=== PATIENT | male | born 1970 | race Caucasian/White ===

== ENCOUNTER → 2017-07-30 13:07 | Outpatient (CLI) | payer OTHER, SELFPAY ==
[2016-03-01 02:51] VITALS: BMI 44.4
[2016-03-01 10:53] VITALS: BP 131/88
[2016-03-01 12:11] VITALS: BP 138/88
--- NOTE | 2017-07-30 13:16 | RAD_ITS ---
STUDY: X-RAY - LEFT SHOULDER REASON FOR EXAM: Male, 46 years old. Pain TECHNIQUE: 4 view(s) of the shoulder. COMPARISON: None. FINDINGS: Normal glenohumeral articulation. Mild hypertrophy at the acromioclavicular joint. Normal acromion. Normal humeral head and visualized proximal humerus. The soft tissue structures are unremarkable. Normal visualized pulmonary apex. RAD/Shoulder min 2 Views IMPRESSION: No acute bony injury of the shoulder. Electronically Signed: Domo Burns DO at 22:15 EST Tel [phone], Service support ,
== END ==
PROVIDERS: Family Provider Family Medicine; PCP Family Medicine; Visit Provider Family Medicine
DX: M25.512 Pain in left shoulder (principal)
CPT/HCPCS: 73030

== ENCOUNTER 2018-01-24 20:30 | Emergency (ER) | payer OTHER, SELFPAY ==
[2018-01-24 20:30] VITALS: BP 167/105; PULSE 75; RESP 18; TEMP 37.1; O2SAT 96; BMI 45.7
[2018-01-24] MEDS: 0.9% Normal Saline 1,000 ML 1000 ML IV (21:05)
[2018-01-24 21:10] LABS: Bacteria 0 SEEN /hpf (None Seen); Mucous, Urine 0 SEEN /hpf (<or=2+); Red Blood Cells-Urine 0 SEEN /hpf (0-5); Squamous Epithelial Cells - UA 0 SEEN /hpf (0-5); White Blood Cells 0 SEEN /hpf (0-5)
[2018-01-24 21:15] LABS: Color, Urine Yellow (Yellow); Glucose, Dipstick 1000 mg/dl (Normal); Ketone-Dipstick 5 mg/dl (Negative); Leukocyte Esterase-Dipstick Negative /ul (Negative); Nitrite-Dipstick Negative (Negative); Occult Blood-Urine Negative /ul (Negative); Protein-Dipstick 15 mg/dl (Negative); Specific Gravity, Urine 1.025 (1.002-1.030); Urine Bilirubin Dipstick Negative (Negative); Urine Clarity Clear (Clear); Urine Urobilinogen Normal (Normal)
[2018-01-24 21:16] LABS: Bedside Glucose 226 mg/dL (70-110)
[2018-01-24 21:26] LABS: Absolute Lymphocyte Count 1.72 X10^3/ul (0.83-4.51); Anion Gap 6 (5-15); BUN 11 mg/dL (7-18); BUN/Creat Ratio 13.1 RATIO (10-20); Basophil# 0.05 X10^3/uL; Basophil% 0.8 % (0-1); Calcium,Total 9.1 mg/dL (8.5-10.1); Chloride 105 mmol/L (98-107); Creatinine, Serum 0.84 mg/dL (0.70-1.30); EST Glomerular Filtration Rate 103 mL/min (>60); Eosinophil# 0.32 X10^3/uL; Eosinophils% 4.8 % (0-5); Est Glom Filt Rate - Afr Amer 125 mL/min (>60); Estimated Creatinine Clearance 127.14 ml/min; Glucose 265 mg/dL (74-106); Hematocrit 43.2 % (40-54); Hemoglobin 14.2 g/dl (13.0-16.5); Lymphocyte # 1.72 X10^3/ul (4.0); Lymphocyte % 25.9 % (19-41); Mean Corp Hgb Conc 32.9 g/gl (32-36); Mean Corpuscular Hgb 27.4 pg (27.0-32.0); Mean Corpuscular Volume 83.4 fL (80-94); Mean Platelet Vol. 10.6 fl (6.2-12.0); Monocyte# 0.51 X10^3/uL; Monocyte% 7.7 % (0-10); Neutrophil # 4.03 X10^3/uL (2.7-7.7); Neutrophil % 60.6 % (47-70); POSITIVE COUNT NO; POSITIVE DIFFERENTIAL NO; POSITIVE MORPHOLOGY NO; Platelet Count 227 K/mm3 (150-450); Potassium 3.9 mmol/L (3.5-5.1); RBC Distribution Width CV 13.2 % (11.6-14.6); RBC Distribution Width SD 39.9 fl (35.1-43.9); Red Blood Count 5.18 M/mm3 (4.6-6.2); Sodium Level 138 mmol/L (136-145); White Blood Count 6.6 K/mm3 (4.4-11.0)
--- NOTE | 2018-01-24 21:33 | ED.VISSUMM ---
- ER Visit Summary Date of Service: 01/24/18 Chief Complaint: [High blood sugar] History of Present Illness: The patient is a 47 M [presents the emergency department complaint of elevated blood sugar that he noticed this morning when he woke up. Patient states that his meter just read high which means it was over 500. Patient is currently only taking 1 of his medications which is the Metformin which he takes 1000 mg twice a day. Patient also was supposed to be on true list that he 0.75 mg once a week as well as Invokana 100 mg daily and pioglitazone 15 mg daily. Patient states that he cannot afford the co-pays on these 3 other medications and therefore he has been without them for over 2 weeks. Patient finally called his primary care physician he has an appointment scheduled for tomorrow. Prior to coming to the emergency department patient's blood sugar was 278. Patient denies vomiting. Patient denies recent illness. At times patient has had some lightheadedness.] Physical Examination: [HEENT-PERRLA, EOMI. Cranial nerves II through XII grossly intact. TMs clear. Mucous membranes moist. No adenopathy. Cardiovascular-regular rate and rhythm without murmur or ectopy Lungs-clear to auscultation, chest wall stable without crepitus or subcu emphysema Abdomen-normoactive bowel sounds, soft, nontender, no rebound or rigidity, no peritoneal signs. Extremities-intact ?4, normal range of motion, normal pulses, atraumatic] Test Results: CBC with differential obtained was normal. Chemistries unremarkable. Blood glucose was 265. BUN was 11 and creatinine 0.84. Urinalysis showed that he was spilling glucose without evidence of infection. [] Emergency Department Course and Treatment: [Patient received a liter normal same fluid bolus.] Treatment Plan: [Patient to keep his appointment with his primary care physician tomorrow.] Disposition: [Discharged home in stable condition] Impression: [Hyperglycemia Noncompliant with medications secondary to financial's] This note was generated with [employer] dictation software. It may contain incorrect words, spelling, and punctuation that were not noted in review of the chart prior to signing ED Disposition - Plan for ED Patient: Chief Complaint: Hyperglycemia Referrals: Sesar Gore DO [Primary Care Provider] -
--- NOTE | 2018-01-24 21:36 | ED.DCSUM_ITS ---
- ER Visit Summary Date of Service: 01/24/18 Chief Complaint: [High blood sugar] History of Present Illness: The patient is a 47 M [presents the emergency department complaint of elevated blood sugar that he noticed this morning when he woke up. Patient states that his meter just read high which means it was over 500. Patient is currently only taking 1 of his medications which is the Metformin which he takes 1000 mg twice a day. Patient also was supposed to be on true list that he 0.75 mg once a week as well as Invokana 100 mg daily and pioglitazone 15 mg daily. Patient states that he cannot afford the co-pays on these 3 other medications and therefore he has been without them for over 2 weeks. Patient finally called his primary care physician he has an appointment scheduled for tomorrow. Prior to coming to the emergency department patient's blood sugar was 278. Patient denies vomiting. Patient denies recent illness. At times patient has had some lightheadedness.] Physical Examination: [HEENT-PERRLA, EOMI. Cranial nerves II through XII grossly intact. TMs clear. Mucous membranes moist. No adenopathy. Cardiovascular-regular rate and rhythm without murmur or ectopy Lungs-clear to auscultation, chest wall stable without crepitus or subcu emphysema Abdomen-normoactive bowel sounds, soft, nontender, no rebound or rigidity, no peritoneal signs. Extremities-intact ?4, normal range of motion, normal pulses, atraumatic] Test Results: CBC with differential obtained was normal. Chemistries unremarkable. Blood glucose was 265. BUN was 11 and creatinine 0.84. Urinalysis showed that he was spilling glucose without evidence of infection. [ ] Emergency Department Course and Treatment: [Patient received a liter normal same fluid bolus.] Treatment Plan: [Patient to keep his appointment with his primary care physician tomorrow.] Disposition: [Discharged home in stable condition] Impression: [Hyperglycemia Noncompliant with medications secondary to financial's] This note was generated with [employer] dictation software. It may contain incorrect words, spelling, and punctuation that were not noted in review of the chart prior to signing ED Disposition - Plan for ED Patient: Chief Complaint: Hyperglycemia Referrals: Sesar Gore DO [Primary Care Provider] -
--- NOTE | 2018-01-24 21:36 | ED.DEP ---
ED Disposition - Plan for ED Patient: Chief Complaint: Hyperglycemia Instructions: ED Hyperglycemia Diabetic Referrals: Sesar Gore DO [Primary Care Provider] - 1 Day
[2018-01-24 21:59] VITALS: PULSE 87; RESP 18; O2SAT 96
[2018-01-24 22:10] LABS: Bedside Glucose 231 mg/dL (70-110)
== END 2018-01-24 22:00 | disposition home or self-care (01) ==
PROVIDERS: Emergency Provider Emergency Medicine; Family Provider Family Medicine; PCP Family Medicine
DX: E11.65 Type 2 diabetes mellitus with hyperglycemia (principal); I10 Essential (primary) hypertension; E78.00 Pure hypercholesterolemia, unspecified; Z91.14 Patient's other noncompliance with medication regimen; Z79.84 Long term (current) use of oral hypoglycemic drugs; Z79.82 Long term (current) use of aspirin; Z72.0 Tobacco use
CPT/HCPCS: 80048; 81001; 82962; 85025; 99283; J7030; A4216

== ENCOUNTER 2018-04-24 18:06 | Emergency (ER) | payer OTHER, SELFPAY ==
[2018-04-24 18:07] VITALS: BP 155/83; PULSE 77; RESP 18; TEMP 36.7; O2SAT 97; BMI 43.3
[2018-04-24 18:16] VITALS: BP 145/70; PULSE 75; RESP 14; O2SAT 98
[2018-04-24] MEDS: Ketorolac 30 MG/ML Syringe IM (19:06)
[2018-04-24] MEDS: Orphenadrine 60 MG/2 ML Ampul IM (19:06)
[2018-04-24] MEDS: morphine 10 MG/ML Syringe 4 MG SC (19:06)
--- NOTE | 2018-04-24 20:05 | ED.DCSUM_ITS ---
- ER Visit Summary Date of Service: 04/24/18 Chief Complaint: Lower back pain History of Present Illness: The patient is a 47 M with lower back pain that has been increasing for several days. Denies any injury. He has had back pain in the past. He is taking anti-inflammatories with minimal relief. Denies any abdominal or GI symptoms. Denies any urinary symptoms. Denies fevers. Denies any history of lumbar surgery. Physical Examination: Afebrile and vital signs unremarkable. Alert and oriented. No acute distress. Heart regular. Lungs clear. Left lumbar back is tender to palpation. No spinal tenderness. Straight leg raise is negative. Normal strength and sensation distally. Good pulses. Test Results: None indicated Emergency Department Course and Treatment: Patient received subtenons morphine, Toradol, Norflex. On reevaluation, he was able to ambulate. Patient will be discharged. He will continue anti-inflammatories at home. Flexeril as needed. He was given a short course of Percocet for help with sleeping. Follow-up with primary care Thursday. Treatment Plan: As above Disposition: Discharge Impression: 1. Lumbar back pain This note was generated with [employer] dictation software. It may contain incorrect words, spelling, and punctuation that were not noted in review of the chart prior to signing ED Disposition - Plan for ED Patient: Chief Complaint: Back Referrals: Sesar Gore DO [Primary Care Provider] -
--- NOTE | 2018-04-24 20:05 | ED.DEP ---
ED Disposition - Plan for ED Patient: Chief Complaint: Back Instructions: ED Spasm Back No Trauma Prescriptions: Oxycodone HCl/Acetaminophen [Percocet 5/325] 1 tab PO Q6H PRN PRN 3 Days #12 tab PRN Reason: Pain Cyclobenzaprine [Flexeril] 10 mg PO TID PRN #20 tab PRN Reason: Muscle Spasm Referrals: Sesar Gore DO [Primary Care Provider] -
[2018-04-24 20:18] VITALS: BP 142/70; PULSE 70; RESP 14; O2SAT 98
== END 2018-04-24 20:20 | disposition home or self-care (01) ==
PROVIDERS: Emergency Provider Emergency Medicine; Family Provider Family Medicine; PCP Family Medicine
DX: M54.5 Low back pain (principal); Z87.442 Personal history of urinary calculi
CPT/HCPCS: 96372; 99283

== ENCOUNTER 2019-02-15 20:38 | Observation (INO) | payer BC, SELFPAY ==
[2019-02-15 20:38] VITALS: BP 153/84; PULSE 88; PULSE 92; RESP 16; RESP 17; TEMP 37.1; O2SAT 98; BMI 46.0
--- NOTE | 2019-02-15 20:40 | ED.RN ---
CALLED FOR EKF PER RN REQUEST, PULLED OLD EKGS FOR
--- NOTE | 2019-02-15 20:45 | RAD_ITS ---
STUDY: X-RAY CHEST REASON FOR EXAM: Male, 48 years old. Chest pain TECHNIQUE: Single frontal view of the chest. COMPARISON: None. FINDINGS: The lungs are clear and expanded. There is no demonstrated pleural abnormality. Normal size heart. Normal mediastinum and juanjo. Normal visualized pulmonary arteries. Normal visualized aortic arch and descending thoracic aorta. Normal visualized thoracic spine. Normal visualized ribs, clavicles, and shoulders. There is no demonstrated abnormality of the visualized soft tissue structures of the upper abdomen. RAD/Chest 1 View (Portable) IMPRESSION: Normal x-ray examination of the chest. Electronically Signed: Chay Sutton MD at 21:36 EDT , Service support ,
--- NOTE | 2019-02-15 20:47 | EKG12_ITS ---
Test Reason : CP Blood Pressure : / mmHG Vent. Rate : 092 BPM Atrial Rate : 092 BPM P-R Int : 154 ms QRS Dur : 090 ms QT Int : 344 ms P-R-T Axes : 036 -27 023 degrees QTc Int : 425 ms Normal sinus rhythm Normal ECG Confirmed by HILLARY BOWMAN ([id number]), news assignment editor ROBERTA HOLLINS ([id number]) on 02/22/2019 10:03:56 AM Referred By: Nereida Sky Confirmed By:HILLARY BOWMAN
[2019-02-15 20:51] VITALS: O2SAT 99
[2019-02-15 20:54] LABS: Absolute Lymphocyte Count 1.49 X10^3/uL (0.83-4.51); Absolute Neutrophil Count 6.3 X10^3/uL (2.0-7.7); Basophil# 0.06 X10^3/uL; Basophil% 0.7 % (0-1); Eosinophil# 0.26 X10^3/uL; Eosinophils% 2.9 % (0-5); Hematocrit 43.3 % (40-54); Hemoglobin 14.1 g/dL (13.0-16.5); Lymphocyte # 1.49 X10^3/ul (4.0); Lymphocyte % 16.8 % (19-41); Mean Corp Hgb Conc 32.6 g/dL (32-36); Mean Corpuscular Hgb 27.6 pg (27.0-32.0); Mean Corpuscular Volume 84.7 fL (80-94); Mean Platelet Vol. 10.4 fl (6.2-12.0); Monocyte# 0.76 X10^3/uL; Monocyte% 8.6 % (0-10); NRBC Flagged by Analyzer 0 % (0-5); Neutrophil # 6.27 X10^3/uL (2.7-7.7); Neutrophil % 70.7 % (47-70); Platelet Count 236 K/mm3 (150-450); RBC Distribution Width CV 13.2 % (11.6-14.6); RBC Distribution Width SD 41.1 fl (35.1-43.9); Red Blood Count 5.11 M/mm3 (4.6-6.2); White Blood Count 8.9 K/mm3 (4.4-11.0)
[2019-02-15] MEDS: Aspirin 81 MG TAB.CHEW 324 MG PO (20:57)
[2019-02-15] MEDS: 0.9% Normal Saline 1,000 ML 150 ML IV (21:00)
[2019-02-15 21:12] LABS: Anion Gap 6 (5-15); BUN 14 mg/dL (7-18); Calcium,Total 9.4 mg/dL (8.5-10.1); Chloride 104 mmol/L (98-107); Creatinine, Serum 1.17 mg/dL (0.70-1.30); EST Glomerular Filtration Rate 70 mL/min (>60); Est Glom Filt Rate - Afr Amer 85 mL/min (>60); Estimated Creatinine Clearance 90.28 ml/min; Glucose 344 mg/dL (74-106); Potassium 4.3 mmol/L (3.5-5.1); Sodium Level 136 mmol/L (136-145)
--- NOTE | 2019-02-15 21:17 | ED.VIS.GEN ---
History of Present Illness Chief Complaint: Chest Pain Informant: Patient Onset: Days Context: Gradual Onset Timing: Intermittent Current Severity: Moderate Maximum Severity: Moderate Narrative: Patient presents to the emergency department chest pain, fatigue, and syncopal episode. Patient states he has been in his normal state of health. He states that he has been having elevated blood sugars. He thought that it was secondary to the fact that he has been working 2 jobs and not eating appropriately. He states over the past 3 days, he has been having intermittent chest pain in the left substernal area that radiates into his left shoulder. He states it will come in waves. He does not think it is related to exertion. He states the other night, he got up to urinate, was just feeling very fatigued and lightheaded. He states that he had passed out twice. He states he had chest pain before he was admitted to the hospital and had a stress test which showed no acute process. He denies any history of coronary vascular disease. He denies orthopnea or leg edema. Prior similar symptoms: Yes Recent Illness/Hospitalization: No Past Medical History - Allergies and Home Meds Allergies/Adverse Reactions: Allergies sitagliptin [From Januvia] Allergy (Verified 02/15/19 20:51) Angioedema Prior records reviewed: Yes Past Medical History: - - Hypertension, hyperlipidemia, obesity, diabetes Surgical History: - - nephrolithiasis break up by u/s Lives: With Family Smoking Status: Former smoker Alcohol: None Drugs: None - Family History Paternal Family History: Reports: Heart Disease Maternal Family History: Reports: - - chf Review of Systems General: Reports: Malaise Eyes: Denies: Visual changes - bilaterally, Diplopia ENT: Denies: Rhinorrhea, Sore throat Cardiovascular: Reports: Chest pain Respiratory: Denies: Dyspnea, Cough, Dyspnea on exertion Gastrointestinal: Reports: Nausea Genitourinary: Reports: Frequency Musculoskeletal: Denies: Back pain, Extremity Pain Skin: Denies: Rash, Wounds Neurological: Denies: Headache, Weakness, Numbness Physical Exam Vital Signs/Narrative: Vital Signs Temp Pulse Resp BP Pulse Ox 02/15/19 20:51 99 02/15/19 20:38 98.7 F 88 17 153/84 H 98 Inital Vital Signs reviewed: Yes General: Well nourished, Well developed, No Acute Distress Head: Normocephalic, Atraumatic Eyes: Perrl, EOMI ENT: Moist mucous membranes, No rhinorrhea Neck: Supple, Nontender Cardiovascular: Regular rate, Regular rhythm, No murmurs Respiratory: No distress, CTA bilaterally, Chest nontender Abdomen: Soft, Nontender, Nondistended, Normal bowel sounds Back: Nontender, Normal Inspection Extremities: Nontender, No edema Skin: Normal color, No rash Neurological: Alert, Oriented x3, Cranial nerves II-XII grossly intact, Normal Strength, Normal Sensation Psychological: Normal affect, Normal Mood Diagnostic/Tx/Re-eval Chest X-Ray - ED: 1 View, Normal, Heart, Lungs Clinical Impression(s) from Imaging Studies Chest X-Ray 02/15/19 20:45 IMPRESSION: Normal x-ray examination of the chest. Electronically Signed: Chay Sutton MD at 21:36 EDT , Service support , Abnormal Lab Results 02/15/19 02/15/19 20:49 20:49 WBC 8.9 RBC 5.11 Hgb 14.1 Hct 43.3 MCV 84.7 MCH 27.6 MCHC 32.6 RDW Std Deviation 41.1 RDW Coeff of Pipo 13.2 Plt Count 236 MPV 10.4 Immature Gran % (Auto) 0.300 Neut % (Auto) 70.7 H Lymph % (Auto) 16.8 L [place] % (Auto) 8.6 Eos % (Auto) 2.9 Baso % (Auto) 0.7 Absolute Neuts (auto) 6.3 Absolute Lymphs (auto) 1.49 Nucleated RBC % 0 Sodium 136 Potassium 4.3 Chloride 104 Carbon Dioxide 26.0 Anion Gap 6 BUN 14 Creatinine 1.17 Estim Creat Clear Calc 90.28 Est GFR (MDRD) Af Amer 85 Est GFR (MDRD) Non-Af 70 BUN/Creatinine Ratio 12.0 Glucose 344 H Calcium 9.4 Troponin I < 0.015 - Rhythm Strip Rhythm Strip: Sinus Rhythm Rate: 90 Ectopy: None - EKG Initial EKG Interpretation: Sinus Rhythm, No Acute Injury Pattern Prior: Unchanged - Medical Decision Making My suspicion is that the patient's chest pain is multifactorial. He does have significant risk for coronary vascular disease. His EKG did not show any acute ischemic change and was unchanged from prior. As far as a syncopal events, the patient does have sleep apnea and has not been using his CPAP, he is also been working 2 jobs and is not managing his blood sugar. Again, my suspicion for acute coronary syndrome is low but the patient does have multiple risk factors. Metabolic work-up was pursued and was unremarkable. At this point, the patient needed to observation for cardiac rule out. He is comfortable with this plan of care. Impression 1. Chest pain 2. Syncope ED Disposition - Plan for ED Patient:
--- NOTE | 2019-02-15 21:51 | PCM.HP.STD ---
Problem List (1) Chest pain Status: Acute Qualifiers: Chest pain type: unspecified Qualified Code(s): R07.9 - Chest pain, unspecified (2) CHARISSA (obstructive sleep apnea) Status: Chronic (3) Diabetes Status: Chronic Qualifiers: Diabetes mellitus type: type 2 Diabetes mellitus residential insulin use: with emt intermediate use Diabetes mellitus complication status: with other specified complication Qualified Code(s): E11.69 - Type 2 diabetes mellitus with other specified complication; Z79.4 - USP (current) use of insulin (4) HLD (hyperlipidemia) Status: Chronic Qualifiers: Hyperlipidemia type: unspecified Qualified Code(s): E78.5 - Hyperlipidemia, unspecified (5) HTN (hypertension) Status: Chronic Qualifiers: Hypertension type: essential hypertension Qualified Code(s): I10 - Essential (primary) hypertension History of Present Illness Date of Admission: 02/15/19 Chief Complaint: Chest pain The patient is a 48 y/o M w/ PMHx: Morbid Obesity, Diabetes mellitus type II, HTN, HLD, Former Tobacco use, GERD, CHARISSA currently without CPAP who presents to the [facility] ED on 02/15/19 with history of 3 3 days of near constant although he does state there have been very minimal pauses of chest discomfort described as achiness, 3-5 out of 10 which is across the chest as well as across his back and shoulders with no specific alleviating or worsening factors, not exertional, no associated nausea, emesis, dyspnea however does state that he has been more fatigued, working 2 jobs, poor oral intake choices and per report even fell asleep sitting up the evening prior and awoke as he had fallen towards the floor with noted market elevated stress and from his report tension headaches. Patient was previously admitted in February 2016 with chest discomfort at that time with unremarkable work-up presumed secondary to GERD with a negative nuclear stress test at that time as well as negative cardiac enzymes series. Work-up in the ED included T 98.7, heart rate 92, BP 153/84, respiratory rate 16, 98% on room air, CBC with WBC 8.9, hemoglobin 14.1, platelet 236 without evidence market shift, BMP with glucose 344 otherwise not market appearing, troponin less than 0.015, EKG with sinus rhythm with no acute evidence of ischemia, chest x-ray with no acute cardiopulmonary findings. In the ED patient ministered normal saline, aspirin therapy, insulin 8 units subcu x1. Past Medical History Past Medical History (Chronic Problems): Chronic Problems CHARISSA (obstructive sleep apnea) (Chronic) HLD (hyperlipidemia) (Chronic) HTN (hypertension) (Chronic) Diabetes (Chronic) Allergies sitagliptin [From Anabela] Allergy (Verified 02/15/19 20:51) Angioedema Home Medications: Ambulatory Orders Medication Instructions Recorded Aspirin [Aspirin, Baby] 81 mg PO DAILY@0800 02/29/16 Simvastatin [Zocor] 40 mg PO QHS 02/29/16 metFORMIN HCl [Glucophage] 1,000 mg PO BIDCM 02/29/16 Citalopram [Celexa] 20 mg PO DAILY 02/15/19 Gabapentin [Neurontin] 300 mg PO BID 02/15/19 Glyburide,Micronized [Glyburide 6 mg PO DAILY 02/15/19 Micronized] Lisinopril [Zestril] 10 mg PO 02/15/19 cycloBENZAPRine HCl [Flexeril] 10 mg PO TID PRN 02/15/19 Surgical History: - - Lithotripsy. Psychiatric History: Anxiety, Depression Lives: With Family - Patient lives with his and son. Smoking Status: Former smoker - Patient states he was never a cigarette tobacco user but did in the past remotely smokes cigars occasionally. Tobacco Use: Non-smoker Alcohol: None Drugs: None - *Family History Paternal History Items: Diabetes, Heart Disease Maternal History Items: Diabetes, Heart Disease Review of Systems Constitutional: Reports: Malaise, Fatigue. Denies: Anorexia, Chills, Fever, Weakness, Weight Change HEENT: Reports: Head Aches. Denies: Sinus Congestion, Sinus Drainage Cardiovascular: Reports: Chest Pain. Denies: Chest Pressure, Chest Tightness, Heaviness, Light Headedness, Orthopnea, Palpitations, Syncope Respiratory: Denies: Cough, Shortness of Breath, Shortness of breath at rest, Shortness of breath upon exertion, Sputum production Gastrointestinal: Denies: Abdominal Pain, Nausea, Vomiting Genitourinary: Reports: - - Overactive bladder, urinary frequency.. Denies: Dysuria Musculoskeletal: Reports: Back Pain, Neck Pain, Shoulder Pain. Denies: Joint Pain, Joint Tenderness Skin: Denies: Rash, Wounds Neurological: Denies: Numbness, Tingling, Focal weakness Psychiatric: Reports: Anxiety, Depression. Denies: Homicidal Ideations, Suicidal Ideations Hematologic/ Lymphatic: Denies: Easy Bruising, Easy Bleeding VTE Information - Inpt Only VTE Present on Admission: No VTE Mechan Device Prophylaxis: SCD's VTE Pharm Prophylaxis ordered?: Yes Subjective: Seated upright in ED bed, fatigued appearance, no acute distress, no current chest discomfort. Objective: Physical Examination: General: awake, alert, oriented x 3 and cooperative, seated upright in ED bed, no acute distress, no current chest discomfort. Skin: normal color, turgor, no icterus, cyanosis. HEENT: AT/NC, EOMI, PERRLA, mildly dry MM, no carotid bruits or JVD noted; however, thickened neck makes examination difficult. Lungs: CTA bilaterally, moderate effort, moderate decrease BL bases, no rales, ronchi or wheezing. Heart: Regular rate and rhythm; no gallop, rub audible. Abdomen: soft, morbidly obese, NTTP, ND, normal BS, no HSM; however, morbidly obese habitus makes examination difficult. Extremities: no cyanosis, clubbing, or edema. Neurological: patient awake, alert, oriented x 3; cognitive function intact; pupils equally reactive to light and accomodation; cranial nerves II-XII grossly normal, moving all 4 extremities, no focal deficits, strength moderately global decrease secondary to acute presentation. Psychiatric: affect appears fatigued, does admit that he has high stress in his life, no acute evidence of depressive or anxiety feelings. - Physical Exam Vital Signs Temp Pulse Resp BP Pulse Ox 98.7 F 88 17 153/84 H 99 02/15/19 20:38 02/15/19 20:38 02/15/19 20:38 02/15/19 20:38 02/15/19 20:51 Oxygen Delivery Method Room Air Weight: 368 lb 2.751 oz Body Mass Index (BMI) 46.0 Finger Stick Blood Glucose 231 Laboratory Tests Past 24 Hrs 02/15/19 02/15/19 20:49 20:49 WBC 8.9 RBC 5.11 Hgb 14.1 Hct 43.3 MCV 84.7 MCH 27.6 MCHC 32.6 RDW Std Deviation 41.1 RDW Coeff of Pipo 13.2 Plt Count 236 MPV 10.4 Immature Gran % (Auto) 0.300 Neut % (Auto) 70.7 H Lymph % (Auto) 16.8 L [place] % (Auto) 8.6 Eos % (Auto) 2.9 Baso % (Auto) 0.7 Absolute Neuts (auto) 6.3 Absolute Lymphs (auto) 1.49 Nucleated RBC % 0 Sodium 136 Potassium 4.3 Chloride 104 Carbon Dioxide 26.0 Anion Gap 6 BUN 14 Creatinine 1.17 Estim Creat Clear Calc 90.28 Est GFR (MDRD) Af Amer 85 Est GFR (MDRD) Non-Af 70 BUN/Creatinine Ratio 12.0 Glucose 344 H Calcium 9.4 Troponin I < 0.015 Assessment/Plan All Active Problems Chest pain (Acute) SOB (shortness of breath) (Acute) The patient is a 48 y/o M w/ PMHx: Morbid Obesity, Diabetes mellitus type II, HTN, HLD, Former Tobacco use, GERD, CHARISSA currently without CPAP who presents to the [facility] ED on 02/15/19 with history of 3 3 days of near constant although he does state there have been very minimal pauses of chest discomfort described as achiness, 3-5 out of 10 which is across the chest as well as across his back and shoulders with no specific alleviating or worsening factors, not exertional, no associated nausea, emesis, dyspnea. 1. Chest Pain, atypical, less suspicious for cardiac etiology: Work-up in the ED included T 98.7, heart rate 92, BP 153/84, respiratory rate 16, 98% on room air, CBC with WBC 8.9, hemoglobin 14.1, platelet 236 without evidence market shift, BMP with glucose 344 otherwise not market appearing, troponin less than 0.015, EKG with sinus rhythm with no acute evidence of ischemia, chest x-ray with no acute cardiopulmonary findings. Suspect likely etiology musculoskeletal in etiology especially with likely tension headaches, poor CPAP compliance contributing as well as poor diet and self-care. Will admit to the PCU, place on a monitored bed to assure no acute myocardial infarction with serial cardiac enzymes and EKGs. Patient is unable to perform exercise thus will proceed with AM nuclear stress testing. ASA, NG, morphine. FLP pending. Mag pending. 2. ? Syncopal event: Syncopal event during recent history of chest discomfort, not using CPAP, poor oral food intake, poor compliance with regimen, suspect likely anoxia as does not recall events but was found by in his closet. As noted will place on a monitored bed to assure no acute myocardial infarction with serial cardiac enzymes and EKGs, continue closely monitor, institute CPAP I suspect most likely etiology. 3. Hypertension: Continue home regimen including lisinopril, PRN hydralazine. 4. Hyperlipidemia: Continue home statin regimen. AM FLP. 5. Diabetes mellitus type II: Hold oral home regimen, clarifying long-acting as well as short-acting regimen, obtain hemoglobin HgbA1c, ADA diet until n.p.o. status, accu checks w/ ISS, nutrition consultation for education and teaching. 6. Morbid Obesity: Weight loss and lifestyle changes encouraged, nutrition consulted. 7. Former tobacco use: Encouraged continued tobacco cessation. 8. CHARISSA: Will initiate CPAP. CM consultation to assist with set-up of his CPAP again as he notes this had been discontinued following lapse of his prior insurance but has not resumed. 9. GERD: We will place on PPI. 10. Anxiety and depression: Continue home Celexa regimen. 11. DVT prophylaxis SCDs, Lovenox. Code Visit OBSV E&M: [id number] Initial observation care L3
[2019-02-15 22:02] VITALS: BP 154/75; PULSE 82; RESP 20; O2SAT 96
[2019-02-15] MEDS: Insulin Lispro 100 UNIT/ML INSULN.PEN 8 UNIT SC (22:34)
--- NOTE | 2019-02-15 22:48 | EKG12_ITS ---
Test Reason : Blood Pressure : / mmHG Vent. Rate : 067 BPM Atrial Rate : 067 BPM P-R Int : 168 ms QRS Dur : 098 ms QT Int : 404 ms P-R-T Axes : 047 -20 -07 degrees QTc Int : 426 ms Normal sinus rhythm Leftward [place] Nonspecific T-wave abnormality Confirmed by ANDRES PALMER, ROSANNE ([id number]), newspaper copy editor ROBERTA HOLLINS ([id number]) on 02/22/2019 11:58:09 AM Referred By: Nereida Sky Confirmed By:ROSANNE CAMPOS MD
[2019-02-15 22:50] VITALS: BMI 45.3; BMI 45.4
[2019-02-15 23:00] VITALS: BP 162/82; PULSE 78; RESP 16; TEMP 36.9; O2SAT 98
[2019-02-15 23:04] VITALS: PULSE 74
[2019-02-15 23:12] LABS: Magnesium 1.7 mg/dL (1.6-2.6)
[2019-02-15] MEDS: 0.9% Normal Saline 1,000 ML 100 ML IV (23:25)
[2019-02-16] MEDS: Pantoprazole Sodium 40 MG Tablet PO ×2 (00:08→12:06)
[2019-02-16 02:45] LABS: Absolute Lymphocyte Count 2.06 X10^3/uL (0.83-4.51); Absolute Neutrophil Count 4.5 X10^3/uL (2.0-7.7); Basophil# 0.05 X10^3/uL; Basophil% 0.7 % (0-1); Eosinophil# 0.27 X10^3/uL; Eosinophils% 3.6 % (0-5); Hematocrit 38.9 % (40-54); Hemoglobin 12.6 g/dL (13.0-16.5); Lymphocyte # 2.06 X10^3/ul (4.0); Lymphocyte % 27.2 % (19-41); Mean Corp Hgb Conc 32.4 g/dL (32-36); Mean Corpuscular Hgb 26.9 pg (27.0-32.0); Mean Corpuscular Volume 83.1 fL (80-94); Mean Platelet Vol. 10.2 fl (6.2-12.0); Monocyte# 0.63 X10^3/uL; Monocyte% 8.3 % (0-10); NRBC Flagged by Analyzer 0 % (0-5); Neutrophil # 4.54 X10^3/uL (2.7-7.7); Neutrophil % 59.8 % (47-70); Platelet Count 213 K/mm3 (150-450); RBC Distribution Width CV 13.5 % (11.6-14.6); RBC Distribution Width SD 40.8 fl (35.1-43.9); Red Blood Count 4.68 M/mm3 (4.6-6.2); White Blood Count 7.6 K/mm3 (4.4-11.0)
[2019-02-16 02:52] VITALS: PULSE 72
[2019-02-16 03:04] LABS: Anion Gap 6 (5-15); BUN 15 mg/dL (7-18); BUN/Creat Ratio 18.9 RATIO (10-20); Calcium,Total 8.6 mg/dL (8.5-10.1); Chloride 107 mmol/L (98-107); Cholesterol 134 mg/dL (200); EST Glomerular Filtration Rate 109 mL/min (>60); Est Glom Filt Rate - Afr Amer 132 mL/min (>60); Estimated Creatinine Clearance 132.03 ml/min; Glucose 229 mg/dL (74-106); High Density Lipoprotein 47 mg/dL; Potassium 3.8 mmol/L (3.5-5.1); Sodium Level 140 mmol/L (136-145); Triglycerides 82 mg/dL; Very Low Density Lipoprotein 16 mg/dL (5-40)
--- NOTE | 2019-02-16 03:59 | CPS ---
PT STATES HE HASNT WORE A BIPAP IN A WHILE,A FEW MONTHS,DUE TO EQUIPMENT ISSUES.PT STATES HE DOESNT WANT TO WEAR ONE HERE.
[2019-02-16 04:44] VITALS: BP 117/64; PULSE 69; RESP 16; TEMP 36.8; O2SAT 96
--- NOTE | 2019-02-16 05:55 | EKG12_ITS ---
Test Reason : Blood Pressure : / mmHG Vent. Rate : 072 BPM Atrial Rate : 072 BPM P-R Int : 162 ms QRS Dur : 092 ms QT Int : 380 ms P-R-T Axes : 048 -23 -06 degrees QTc Int : 416 ms Normal sinus rhythm Minimal voltage criteria for LVH, may be normal variant Borderline ECG Confirmed by ANDRES PALMER, ROSANNE ([id number]), graphic editor ROBERTA HOLLINS ([id number]) on 02/22/2019 12:01:37 PM Referred By: Nereida Sky Confirmed By:ROSANNE CAMPOS MD
[2019-02-16] MEDS: Aspirin 81 MG TAB.CHEW PO (06:42)
[2019-02-16] MEDS: Lisinopril 10 MG Tablet PO (06:42)
[2019-02-16 06:51] LABS: Bedside Glucose 245 mg/dL (70-110)
[2019-02-16 06:59] VITALS: PULSE 68
[2019-02-16] MEDS: 0.9% Normal Saline 1,000 ML 100 ML IV (10:14)
[2019-02-16] MEDS: 0.9% NaCl Peripheral Flush Adult/Peds IV (10:15)
[2019-02-16 10:39] VITALS: BP 126/71; PULSE 76; RESP 18; TEMP 36.6; O2SAT 92
[2019-02-16 11:11] VITALS: PULSE 74
[2019-02-16] MEDS: Citalopram 20 MG Tablet PO (12:06)
[2019-02-16] MEDS: Gabapentin 300 MG Capsule PO (12:06)
[2019-02-16] MEDS: Insulin Lispro 100 UNIT/ML INSULN.PEN SC (12:07)
[2019-02-16 12:31] LABS: Bedside Glucose 279 mg/dL (70-110)
--- NOTE | 2019-02-16 14:36 | STRESSREP ---
Stress Test Report Date: 02/16/2019 Procedure: Exercise tolerance test/imaging study Indications: Chest pain Consent: Per the patient Procedure: The patient exercised on a Mauro protocol for 6 minutes achieving a peak heart rate of 144 bpm (84 % predicted maximal heart rate) with a peak blood pressure 184/74 mmHg and a peak MET capacity of 7 METs. The baseline ECG demonstrated normal sinus rhythm poor R wave progression in the anterior leads. The peak exercise ECG demonstrated [no significant ischemic changes]. EKG during recovery revealed no significant ischemic changes [There were no cardiac dysrhythmias pretest, during exercise, or recovery]. The functional capacity was considered below average for age. There was [no complaint of chest discomfort during exercise or recovery]. The examination was discontinued secondary to dyspnea. Impression: 1. Stress test is[negative] for exercise-induced EKG changes of ischemia 2. The test test negative for exercise-induced chest pain 3. Functional capacity is below average for age 4. Nuclear images pending Myocardial perfusion imaging study: Technique: The patient was injected with 14.9 mCi of technetium 99m Cardiolite and subsequently rest SPECT Cardiolite nuclear imaging was obtained in the horizontal long, vertical long, and short axis views. The patient exercised on a Mauro protocol. Please see above for details. The patient was injected with 45 mCi of technetium 99m Cardiolite and subsequently stress SPECT Cardiolite nuclear imaging was obtained in the horizontal long, vertical long, and short axis views. A gated Cardiolite study at peak stress was obtained. Interpretation: Rest and stress SPECT Cardiolite nuclear imaging status post realignment, normalization, and attenuation correction, demonstrates no evidence of significant ischemia or infarction. There is decreased radioisotope uptake in the inferior wall on the rest and stress images prior to attenuation correction which improves with attenuation correction suggestive of diaphragmatic attenuation artifact. The gated Cardiolite study demonstrates no significant regional wall motion abnormalities. The reported LVEF is [70]%. Impression: 1. There is no evidence of significant ischemia or infarction. 2. The gated Cardiolite study reports an LVEF of 70 %. This note was generated with [employer] software. It may contain incorrect words, spelling, and punctuation that were not noted in checking the note before signing.
[2019-02-16 14:40] VITALS: BP 125/70; PULSE 80; RESP 16; TEMP 36.7; O2SAT 93
--- NOTE | 2019-02-16 15:19 | DCINST_ITS ---
You will use the following diet at home:: Calorie/Carbohydrate Controlled (specify 1200, 1400, etc) - 1800 ronny / day, Cardiac Your food should be the consistency of: Regular Your liquids should be the consistency of: Regular/Thin Discharge Activity: Return to Normal Activity Additional Instructions: You need to talk to your doctor about diet, exercise, weight loss, and stress management. You will need your A1C rechecked in 3 months. You need to have a repeat Sleep Study as it is essential that you get treated if you have sleep apnea. Allergies/Adverse Reactions: Allergies sitagliptin [From Januvia] Allergy (Verified 02/15/19 20:51) Angioedema Medications to take at Discharge Aspirin [Aspirin, Baby] 81 mg PO DAILY@0800 02/29/16 Simvastatin [Zocor] 40 mg PO QHS 02/29/16 metFORMIN HCl [Glucophage] 1,000 mg PO BIDCM 02/29/16 Citalopram [Celexa] 20 mg PO DAILY 02/15/19 Gabapentin [Neurontin] 300 mg PO BID 02/15/19 Glyburide,Micronized [Glyburide Micronized] 6 mg PO DAILY 02/15/19 Lisinopril [Zestril] 10 mg PO DAILY 02/15/19 cycloBENZAPRine HCl [Flexeril] 10 mg PO TID PRN 02/15/19 Canagliflozin [Invokana] 100 mg PO DAILY #30 tab 02/16/19 The following prescriptions were given: Canagliflozin [Invokana] 100 mg PO DAILY #30 tab Transmission Status: Pending to [facility] Primary Care Physician: Sesar Gore DO [Primary Care Provider] - Please follow up with your Primary Care Physician in: 1 week Test Results: Test results from this visit will be discussed in further detail at your follow- up appointment, if applicable. Proposed Discharge Date: 02/16/19
--- NOTE | 2019-02-16 15:21 | PCM.DC.SUM ---
Discharge Date and Diagnosis Date of Admission: 02/15/19 Date of Discharge: 02/16/19 - Primary Discharge Diagnosis Chest pain - musculoskeletal Questionable syncopal episode CHARISSA untreated HTN HLD Morbid obesity Uncontrolled DMt2 Former tobacco abuser GERD Anxiety and depression - Secondary Discharge Diagnosis Chronic Problems CHARISSA (obstructive sleep apnea) (Chronic) HLD (hyperlipidemia) (Chronic) HTN (hypertension) (Chronic) Diabetes (Chronic) Hospital Course and Treatment Imaging Results: RAD/Chest 1 View (Portable) IMPRESSION: Normal x-ray examination of the chest. Stress test: Impression: 1. There is no evidence of significant ischemia or infarction. 2. The gated Cardiolite study reports an LVEF of 70 %. This note was generated with [employer] dictation software. It may contain incorrect words, spelling, and punctuation that were not noted in checking the note before signing. Operations: None Procedures: Stress test Summary of Care Provided: Hospital Course: The patient is a 48 year old M with pmhx of poorly controlled DMt2, morbid obesity, HTN, HLD, former smoker, with untreated CHARISSA, who presented to the ER with c/o chest pain. This was initially described as 3 days of constant achiness 3-5/10 across the chest pain and sometimes radiating into the back. He denied exertional dyspnea. He also had an episode of falling asleep while sitting and waking up on the floor and was concerned he had syncope. He has ongoing stress and tension headaches and states he has stress from working 2 jobs. He had a negative CXR, EKG, and troponin, and unremarkable blood work. However his blood sugar was elevated so we checked an A1c which was 12.0. He was admitted to the PCU for chest pain work up. No events on tele. Trop x 3 negative. Stress test the following morning was negative. His chest pain is atypical in nature, and he has a known rotator cuff tear, and his chest pain was felt to be musculoskeletal. I placed him on invokana as an additional agent to his home regimen as it is compatible with his current medications and is also indicated for the reduction of cardiac events. He needs a repeat sleep study as he lost his CPAP a year ago and has gone untreated. He needs to improve his diet and exercise more, lose weight, and improve his life stressors. He was discharged home in stable condition. He needs follow up with his PCP in 1 weeks. This patient was seen by Jairo Vick PA-C under the supervision of Dr. Larson. [] - Physical Exam General: Alert, Oriented x3, Cooperative HEENT: Atraumatic, PERRLA, EOMI, Normocephalic Neck: Supple, No JVD, Negative Carotid Bruits Lungs: Clear to auscultation, Normal air movement Cardiovascular: Regular rate, No murmurs Abdomen: Bowel Sounds Present, Soft, Non Tender, Obese Extremities: No edema, Capillary Refill Less than 3 Seconds Skin: No rashes, No breakdown Musculoskeletal: No Tenderness to Palpation of Joints or Extremities Neurological: Cranial nerves II-XII grossly intact Psych/Mental Status: Appropriate, Anxious, Alert and oriented to time, place, person, mood and affect Vital Signs Temp Pulse Resp BP Pulse Ox 97.9 F 76 18 126/71 H 92 02/16/19 10:39 02/16/19 10:39 02/16/19 10:39 02/16/19 10:39 02/16/19 10:39 Oxygen Delivery Method Room Air Weight: 362 lb 14.094 oz Body Mass Index (BMI) 45.3 Finger Stick Blood Glucose 231 Intake and Output for Last 24 Hours 02/14/19 02/15/19 02/16/19 23:59 23:59 23:59 Intake Total 410 / 410 1128.34 / 1128.34 Output Total 0 / 0 Balance 410 / 410 1128.34 / 1128.34 Laboratory Tests Past 24 Hrs 02/15/19 02/15/19 02/15/19 20:48 20:48 20:49 WBC 8.9 RBC 5.11 Hgb 14.1 Hct 43.3 MCV 84.7 MCH 27.6 MCHC 32.6 RDW Std Deviation 41.1 RDW Coeff of Pipo 13.2 Plt Count 236 MPV 10.4 Immature Gran % (Auto) 0.300 Neut % (Auto) 70.7 H Lymph % (Auto) 16.8 L Kingfisher % (Auto) 8.6 Eos % (Auto) 2.9 Baso % (Auto) 0.7 Absolute Neuts (auto) 6.3 Absolute Lymphs (auto) 1.49 Nucleated RBC % 0 Sodium Potassium Chloride Carbon Dioxide Anion Gap BUN Creatinine Estim Creat Clear Calc Est GFR (MDRD) Af Amer Est GFR (MDRD) Non-Af BUN/Creatinine Ratio Glucose Hemoglobin A1c 12.0 H Calcium Magnesium 1.7 Troponin I Triglycerides Cholesterol LDL Cholesterol VLDL Cholesterol HDL Cholesterol 02/15/19 02/16/19 02/16/19 20:49 00:05 02:34 WBC 7.6 RBC 4.68 Hgb 12.6 L Hct 38.9 L MCV 83.1 MCH 26.9 L MCHC 32.4 RDW Std Deviation 40.8 RDW Coeff of Pipo 13.5 Plt Count 213 MPV 10.2 Immature Gran % (Auto) 0.400 Neut % (Auto) 59.8 Lymph % (Auto) 27.2 Kingfisher % (Auto) 8.3 Eos % (Auto) 3.6 Baso % (Auto) 0.7 Absolute Neuts (auto) 4.5 Absolute Lymphs (auto) 2.06 Nucleated RBC % 0 Sodium 136 Potassium 4.3 Chloride 104 Carbon Dioxide 26.0 Anion Gap 6 BUN 14 Creatinine 1.17 Estim Creat Clear Calc 90.28 Est GFR (MDRD) Af Amer 85 Est GFR (MDRD) Non-Af 70 BUN/Creatinine Ratio 12.0 Glucose 344 H Hemoglobin A1c Calcium 9.4 Magnesium Troponin I < 0.015 < 0.015 Triglycerides Cholesterol LDL Cholesterol VLDL Cholesterol HDL Cholesterol 02/16/19 02/16/19 02:34 02:34 WBC RBC Hgb Hct MCV MCH MCHC RDW Std Deviation RDW Coeff of Pipo Plt Count MPV Immature Gran % (Auto) Neut % (Auto) Lymph % (Auto) Kingfisher % (Auto) Eos % (Auto) Baso % (Auto) Absolute Neuts (auto) Absolute Lymphs (auto) Nucleated RBC % Sodium 140 Potassium 3.8 Chloride 107 Carbon Dioxide 27.0 Anion Gap 6 BUN 15 Creatinine 0.80 Estim Creat Clear Calc 132.03 Est GFR (MDRD) Af Amer 132 Est GFR (MDRD) Non-Af 109 BUN/Creatinine Ratio 18.9 Glucose 229 H Hemoglobin A1c Calcium 8.6 Magnesium Troponin I < 0.015 Triglycerides 82 Cholesterol 134 LDL Cholesterol 71 VLDL Cholesterol 16 HDL Cholesterol 47 POC Glucose 02/16/19 02/16/19 12:04 06:41 POC Glucose 279 H 245 H Discharge Diet: Low fat/ Low Cholesterol, 1800 Calorie Control Diet, 2000 mg Sodium Diet Discharge Activity: Return to Normal Activity Home Medications: Medications to take at Discharge Aspirin [Aspirin, Baby] 81 mg PO DAILY@0800 02/29/16 Simvastatin [Zocor] 40 mg PO QHS 02/29/16 metFORMIN HCl [Glucophage] 1,000 mg PO BIDCM 02/29/16 Citalopram [Celexa] 20 mg PO DAILY 02/15/19 Gabapentin [Neurontin] 300 mg PO BID 02/15/19 Glyburide,Micronized [Glyburide Micronized] 6 mg PO DAILY 02/15/19 Lisinopril [Zestril] 10 mg PO DAILY 02/15/19 cycloBENZAPRine HCl [Flexeril] 10 mg PO TID PRN 02/15/19 Canagliflozin [Invokana] 100 mg PO DAILY #30 tab 02/16/19 Following Prescrptions Were Given to Patient: Canagliflozin [Invokana] 100 mg PO DAILY #30 tab Transmission Status: Pending to [facility] Primary Care Physician: Sesar Gore DO [Primary Care Provider] - Please follow up with your Primary Care Physician in: 1 week Disposition: Home Medical Necessity - Tobacco Use Smoking Status: Former smoker Tobacco Use: Non-smoker Meaningful Use Info Meaningful Use Diagnoses (Choose all that apply): None applicable
--- NOTE | 2019-02-16 15:54 | PHA.DC.COU ---
Pharmacy Services has performed discharge medication counseling for this patient. The patient was counseled on the following discharge medications and changes in medications for homegoing review. 1. INVOKANA The Reason for Use, instructions for use, and potential side effects were reviewed for all new medications. The patient's questions regarding all of their medications were answered. The patient demonstrated some understanding but would benefit from further education and reinforcement.
== END 2019-02-16 15:21 | disposition home or self-care (01) ==
LOC: ED 22:11 → PCU 23:11
PROVIDERS: Admitting Provider Family Medicine; Emergency Provider Emergency Medicine; Family Provider Family Medicine; PCP Family Medicine; Referring Provider Family Medicine; Visit Provider Internal Medicine
DX: R07.89 Other chest pain (principal); R55 Syncope and collapse; I25.10 Atherosclerotic heart disease of native coronary artery without angina pectoris; E78.5 Hyperlipidemia, unspecified; I10 Essential (primary) hypertension; E66.01 Morbid (severe) obesity due to excess calories; G47.33 Obstructive sleep apnea (adult) (pediatric); F41.9 Anxiety disorder, unspecified; F32.9 Major depressive disorder, single episode, unspecified; K21.9 Gastro-esophageal reflux disease without esophagitis; Z87.891 Personal history of nicotine dependence; Z79.899 Other long term (current) drug therapy; Z79.4 Long term (current) use of insulin; Z79.82 Long term (current) use of aspirin; Z68.42 Body mass index [BMI] 45.0-49.9, adult; Z71.3 Dietary counseling and surveillance; Z82.49 Family history of ischemic heart disease and other diseases of the circulatory system; E11.65 Type 2 diabetes mellitus with hyperglycemia
CPT/HCPCS: 36415; 71045; 78452; 80048; 80061; 82962; 83036; 83735; 84484; 85025; 93005; 93017; 96360; 96361; 97802; 99218; 99285; A9500; J7030; A4216; G0378

== ENCOUNTER 2020-01-17 09:29 | Emergency (ER) | payer OTHER, SELFPAY ==
[2019-04-27 11:37] VITALS: BMI 47.5
[2020-01-17 09:31] VITALS: BP 150/81; PULSE 100; RESP 16; TEMP 36.6; O2SAT 95; BMI 47.5
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
[2020-01-17 10:11] VITALS: RESP 16
--- NOTE | 2020-01-17 10:11 | ED.RN ---
REVIEWED D/C INSTRUCTIONS, FOLLOW UP CARE, AND S/S THAT WOULD WARRANT A RETURN TO THE ED WITH PT. PT VERBALIZED AN UNDERSTANDING AND DENIES FURTHER QUESTIONS FOR THIS RN. PT SKIN P/W/D, RESP EVEN AND UNLABORED, PT A&O X 3, NO DISTRESS NOTED. PT AMBULATED OUT OF ED, GAIT STEADY.
[2020-01-17 11:16] LABS: Probe Check PASS
== END 2020-01-17 10:17 | disposition home or self-care (01) ==
LOC: ED 10:14
PROVIDERS: Emergency Provider Student in an Organized Health Care Education/Training Program; PCP Family Medicine
DX: Z03.818 Encounter for observation for suspected exposure to other biological agents ruled out (principal); J06.9 Acute upper respiratory infection, unspecified; E11.9 Type 2 diabetes mellitus without complications; Z87.891 Personal history of nicotine dependence; Z79.82 Long term (current) use of aspirin; Z79.84 Long term (current) use of oral hypoglycemic drugs; Z79.4 Long term (current) use of insulin
CPT/HCPCS: 87635; 94799; 99282; U0003

== ENCOUNTER 2020-05-28 22:08 | Emergency (ER) | payer OTHER, SELFPAY ==
[2020-05-28 22:09] VITALS: BP 161/89; PULSE 81; RESP 15; TEMP 36.4; O2SAT 99; BMI 48.1
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
[2020-05-28 22:48] VITALS: BP 153/74; PULSE 78; RESP 16; O2SAT 96
== END 2020-05-28 22:53 | disposition home or self-care (01) ==
LOC: ED 22:52
PROVIDERS: Emergency Provider Emergency Medicine; PCP Family Medicine
DX: S00.33XA Contusion of nose, initial encounter (principal); E78.5 Hyperlipidemia, unspecified; E11.9 Type 2 diabetes mellitus without complications; I10 Essential (primary) hypertension; Z87.891 Personal history of nicotine dependence; Z79.4 Long term (current) use of insulin; Y04.2XXA Assault by strike against or bumped into by another person, initial encounter; Z79.82 Long term (current) use of aspirin
CPT/HCPCS: 99282

== ENCOUNTER 2024-07-17 14:30 | Emergency (ER) | payer OTHER, SELFPAY ==
[2024-07-17 14:31] VITALS: BP 128/71; PULSE 95; RESP 18; TEMP 36.4; O2SAT 97; BMI 47.8
--- NOTE | 2024-07-17 14:40 | EKG12_ITS ---
Test Reason : SYNCOPE Blood Pressure : */* mmHG Vent. Rate : 90 BPM Atrial Rate : 90 BPM P-R Int : 136 ms QRS Dur : 90 ms QT Int : 336 ms P-R-T Axes : 8 -26 5 degrees QTcB Int : 411 ms Normal sinus rhythm Minimal voltage criteria for LVH, may be normal variant ( R in aVL ) Borderline ECG Confirmed by UBALDO PALMER, MAMTA ([id number]), city editor POP TONY ([id number]) on 07/19/2024 6:22:03 AM Referred By: Confirmed By: MAMTA CONNER MD
[2024-07-17 15:10] LABS: Anion Gap 6 (5-15); BUN 32 mg/dL (7-18); BUN/Creat Ratio 23.7 RATIO (10-20); Calcium,Total 10.3 mg/dL (8.5-10.1); Chloride 106 mmol/L (98-107); Creatinine, Serum 1.35 mg/dL (0.70-1.30); EST Glomerular Filtration Rate 58 mL/min (>60); Est Glom Filt Rate - Afr Amer 70 mL/min (>60); Glucose 116 mg/dL (74-106); Potassium 3.9 mmol/L (3.5-5.1); Sodium Level 139 mmol/L (136-145)
[2024-07-17 15:20] LABS: Absolute Lymphocyte Count 1.85 X10^3/uL (0.83-4.51); Absolute Neutrophil Count 6.2 X10^3/uL (2.0-7.7); Basophil# 0.07 X10^3/uL; Basophil% 0.8 % (0-1); Eosinophil# 0.35 X10^3/uL; Eosinophils% 3.8 % (0-5); Hematocrit 41.8 % (40-54); Hemoglobin 13.3 g/dL (13.0-16.5); Lymphocyte # 1.85 X10^3/ul (0.83-4.51); Lymphocyte % 19.8 % (19-41); Mean Corp Hgb Conc 31.8 g/dL (32-36); Mean Corpuscular Hgb 26.8 pg (27.0-32.0); Mean Corpuscular Volume 84.3 fL (80-94); Mean Platelet Vol. 11.1 fl (6.2-12.0); Monocyte# 0.82 X10^3/uL; Monocyte% 8.8 % (0-10); NRBC Flagged by Analyzer 0 % (0-5); Neutrophil # 6.22 X10^3/uL (2.7-7.7); Neutrophil % 66.6 % (47-70); Platelet Count 322 K/mm3 (150-450); RBC Distribution Width CV 13.1 % (11.6-14.6); Red Blood Count 4.96 M/mm3 (4.6-6.2); White Blood Count 9.3 K/mm3 (4.4-11.0)
--- NOTE | 2024-07-17 15:50 | EDS_ITS ---
HPI History of Present Illness Chief Complaint: Weakness [facility] Medical History (Updated 07/17/24 @ 19:[address] Home Mercado, DO) Nephrolithiasis Obesity Lumbar radiculopathy Anxiety and depression Type 2 diabetes mellitus Essential (primary) hypertension CHARISSA (obstructive sleep apnea) HLD (hyperlipidemia) Home Medications ?Medication ?Instructions ?Recorded ?Last Taken ?Type aspirin 81 mg chewable tablet 81 mg PO DAILY@0800 heart health 02/29/16 02/15/19 History metformin 1,000 mg tablet 1,000 mg PO BIDCM diabetes 02/29/16 02/15/19 History simvastatin 10 mg tablet 40 mg PO QHS high cholesterol 02/29/16 02/15/19 History citalopram 20 mg tablet 20 mg PO DAILY anxiety 02/15/19 02/15/19 History gabapentin 300 mg capsule 300 mg PO BID neuropathy 02/15/19 02/15/19 History glyburide micronized 6 mg tablet 6 mg PO DAILY diabetes 02/15/19 02/15/19 History insulin lispro 100 unit/mL 10 units subcut TIDCM diabetes 02/16/19 Unknown History subcutaneous pen pioglitazone 15 mg tablet (Actos) 15 mg PO DAILY 04/27/19 Unknown History lisinopril 20 mg tablet 20 mg PO DAILY #90 tabs 05/14/20 Unknown Rx Allergy/AdvReac Type Severity Reaction Status Date / Time sitagliptin (From Jun) Allergy Angioedema Verified 07/17/24 14:31 Family History Mother Diabetes Heart disease Father Diabetes Heart disease Surgical History History of lithotripsy Social History (Updated 04/27/19 @ 11:[address] Lalo Gutierrez MD) Smoking Status: Former smoker EXAM Physical Exam Const Vital Signs: 07/17/24 14:31 07/17/24 15:28 07/17/24 15:37 Temperature 97.6 F L Temperature Source Temporal Pulse Rate 95 Respiratory Rate 18 Respiratory Effort Normal Non-Labored Respiratory Pattern Normal Blood Pressure 128/71 H Blood Pressure Mean 90 Pulse Ox 97 Oxygen Delivery Method Room Air Room Air 07/17/24 16:33 07/17/24 19:00 07/17/24 20:41 Temperature 99 F Temperature Source Pulse Rate 81 78 Respiratory Rate 16 18 16 Respiratory Effort Respiratory Pattern Blood Pressure 138/67 H 145/88 H Blood Pressure Mean 90 107 Pulse Ox 93 98 95 Oxygen Delivery Method Room Air [facility] Narr[place] Medical decision making narrative: HISTORY OF PRESENT ILLNESS: 53-year-old male presents with weakness. Patient endorses episode lightheadedness, fall. He thinks he may have passed out. He also endorses feeling woozy. The patient further states close prior to arrival patient developed episode of syncope. He notes after he passed out he fell backwards and hit the back of his head. He notes he was confused for 2 to 3 minutes after wards. He denies any prodromal symptoms including headache, loss of vision, focal weakness, loss of sensation, abdominal pain, chest pain. Denies tongue biting or bowel or bladder incontinence. Notes a history of syncope. He states this happen years ago but he was never worked up for. He notes several months ago he went to an outside hospital after having visual issues and had CT scans and test of his heart that he describes as negative. He notes he has been eating and drinking normally. Denies any recent illness. Denies any PE risk factors. He denies any bleeding diathesis. Denies any vomiting or diarrhea. He denies any cough fever or chills. REVIEW OF SYSTEMS: Pertinent positives: Diffuse weakness, lightheadedness Pertinent negatives: As per HPI PHYSICAL EXAM: Nursing triage notes reviewed, Vital signs reviewed Constitutional: please see [facility] HENT: MMM, normocephalic, atraumatic, submental, no bruising, no redness, no sign of trauma Eyes: Pupils equal round and reactive to light, Extraocular muscles intact Neck: No stridor, no JVD, full neck ROM Lungs: Clear to auscultation, No wheezing or rales. No increased work of breathing, no conversational dyspnea, no accessory muscle use, no nasal flaring. No respiratory distress noted Heart: Regular rate and rhythm, No murmurs, No rubs and No gallops, 2+ distal pulses (radial, femoral, posterior tibial) in all extremities Abdomen: Soft, there is no tenderness, rigidity, rebound or guarding, no obvious peritoneal signs, no palpable pulsatile abdominal masses, no auscultated abdominal bruit : No CVAT Extremities: No edema Neuro: Alert and oriented x3, neuro exam at baseline, cranial nerves II through XII are intact. No pain with extraocular muscle movement. There is negative test of skew. 5 of 5 strength in upper and lower extremities in flexion extension. Intact sensation to light touch in upper and lower extremity dermatomes. No truncal or extremity ataxia. No dysdiadochokinesia. Normal gai t. 2+ reflexes in upper and lower extremities. No meningeal signs. Negative Babinski. NIH of 0. Skin: No rash or lesions noted MEDICAL DECISION MAKING: Chief Complaint: Diffuse weakness, lightheadedness External records reviewed: Reviewed prior cardiovascular testing. Reviewed stress test in 2019: Stress test at that time was negative for exercise-induced EKG changes of ischemia Factors affecting care: CHARISSA, type 2 diabetes, hyperlipidemia, hypertension Social determinants of health: none History obtained from others: none Consults: Cardiology (Dr. Brandon) MDM Narrative: Patient was initially hemodynamically stable, afebrile and nontoxic-appearing. Exam without focal neurologic deficit. No stigmata of VTE, dissection or CHF on initial exam. Lungs were clear. Abdomen soft nontender. Primary secondary trauma survey did not reveal any signs of trauma. I considered the following differential diagnosis: ICH, arrhythmia, anemia, electrolyte disturbance, dehydration, CHF, I obtained a broad lab and imaging workup to further elucidate the etiology of the patient's complaints. ALL IMAGES (IF OBTAINED) HAVE BEEN PERSONALLY REVIEWED AND INTERPRETED BY MYSELF. EKG with normal sinus rhythm rate of 90, left axis deviation, normal intervals, no STEMI, no sign of WPW, ARVD or Brugada syndrome CBC without leukocytosis, severe anemia, no thrombocytopenia. BMP without significant electrolyte abnormalities, no sign of metabolic acidosis or endorgan hypoperfusion, noted mild renal insufficiency from prior study 6 years ago EKG, CBC and BMP were placed via triage orders secondary to high acuity and high volume causing poor department of conditions History and physical exam I added a chest x-ray, troponin, BNP and a CT scan of the head given the patient's report of loss of consciousness and head trauma. CT head negative for ICH, I have personally reviewed the patient's chest x-ray. Chest x-ray is unremarkable for pulmonary edema, pneumothorax, pneumonia or focal cardiopulmonary abnormality. High-sensitivity troponin is negative, no evidence of myocardial ischemiax2 BNP within normal limits On re-evaluation patient remained hemodynamically stable. I did discuss the case with cardiology Dr. Brandon is a limited benefit of admission but recommended placing Holter monitor in the ED if we had availability or have the patient follow up with his outpatient physician to have this done. The patient and/or family, caregivers express understanding. The patient and/or family, caregivers agrees with the plan. Shared decision making: I will have a discussion with the patient and or visitors regarding risk/benefits of further testing or admission. They will be made aware of of the risk/benefits inherent in this decision they will be given the opportunity to voice understanding. Total critical care time today provided was at least 0 minutes. This excludes separately billable procedures. Critical care time (if documented) is secondary to the patient having high probability of clinically significant/life threatening deterioration in the patient's condition which required my urgent intervention. Impression: 1. Syncope 2. Head trauma 3. History of type 2 diabetes Dispo: Discharge home This note was generated with [employer] dictation software. It may contain incorrect words, spelling, and punctuation that were not noted in review of the chart prior to signing. Lab Data Labs: Laboratory Results - last 24 hr 07/17/24 07/17/24 07/17/24 14:35 14:45 18:55 WBC 9.3 RBC 4.96 Hgb 13.3 Hct 41.8 MCV 84.3 MCH 26.8 L MCHC 31.8 L RDW Std Deviation 40.0 RDW Coeff of Pipo 13.1 Plt Count 322 MPV 11.1 Immature Gran % (Auto) 0.200 Neut % (Auto) 66.6 Lymph % (Auto) 19.8 Morris % (Auto) 8.8 Eos % (Auto) 3.8 Baso % (Auto) 0.8 Absolute Neuts (auto) 6.2 Absolute Lymphs (auto) 1.85 Nucleated RBC % 0 Sodium 139 Potassium 3.9 Chloride 106 Carbon Dioxide 27.0 Anion Gap 6 BUN 32 H Creatinine 1.35 H Estim Creat Clear Calc 105.10 Est GFR (MDRD) Af Amer 70 Est GFR (MDRD) Non-Af 58 L BUN/Creatinine Ratio 23.7 H Glucose 116 H Calcium 10.3 H Troponin I High Sens 4 4 B-Natriuretic Peptide 9.6 POC Glucose 117 H Radiography Diagnostic Testing: Clinical Impression(s) from Imaging Studies Brain CT 07/17/24 16:18 IMPRESSION: No acute intracranial process. Electronically Signed: Lana Soto MD at 17:29 EST , Chest X-Ray 07/17/24 16:30 IMPRESSION: No radiographic evidence of acute cardiopulmonary disease. Electronically Signed: Lana Soto MD at 17:29 EST , Discharge Plan Triage Chief Complaint: Weakness ED Provider: Home Mercado Dx/Rx/DC Orders Clinical Impression: Syncope Instructions: What Is Syncope Prescriptions: No Action pioglitazone [Actos] 15 mg tablet 15 mg PO DAILY simvastatin 10 MG tablet 40 mg PO QHS metformin 1,000 MG tablet 1,000 mg PO BIDCM aspirin 81 MG tablet,chewable 81 mg PO DAILY@0800 glyburide micronized 6 MG tablet 6 mg PO DAILY citalopram 20 MG tablet 20 mg PO DAILY gabapentin 300 MG capsule 300 mg PO BID insulin lispro 100 UNIT/ML insulin pen 10 units subcut TIDCM Patient Comments: INJECT 10 UNITS SUBCUTANEOUSLY THREE TIMES DAILY BEFORE MEALS lisinopril 20 mg tablet 20 mg PO DAILY Qty: 90 3RF Stand Alone Forms: ED Work / School Excuse Primary Care Provider: Sesar Gore Referrals: Sesar Gore DO [Primary Care Provider] - Activity Restrictions/Additional Instructions: Thank you for trusting us with your care today! Your labs images suggest dehydration. No signs of damage to your heart. No signs of significant issues of heart failure. I discussed your case with our micropaleontologist on-call recommended placing a heart rate monitor to monitor for any abnormal heart rhythms. Please take Tylenol (2 pills, 650 mg), ibuprofen (2 pills, 400 mg) every 6 hours as needed for pain and fever control. Please return to the emergency department if your symptoms change or worsen. Please follow with your primary care physician for further outpatient evaluation and management. Print Language: Bengali Disposition Disposition: Home, Self Care Discharge Date/Time: 07/17/24 21:27
--- NOTE | 2024-07-17 16:18 | CT_ITS ---
INDICATION: head trauma after fall EXAMINATION: CT BRAIN - CT Head or Brain W/O Contrast Injection TECHNIQUE: Multiple axial images were obtained of the head without intravenous contrast. The protocol utilizes one or more of the following dose reduction techniques: automated exposure control, adjustment of mA and/or kV according to patient size,and/or use of iterative reconstruction technique. IV Contrast dosage and agent: None. RADIATION DOSAGE (If Supplied By Facility): CTDIvol = ( 44.99 ) mGy, DLP = ( 812.98 ) mGycm COMPARISON: No relevant prior comparison study available FINDINGS: BRAIN PARENCHYMA: No intra- or extra-axial hemorrhage. No evidence of acute infarct. No intracranial mass or mass effect. There is preservation of the conklin/white matter interface. Posterior fossa structures are unremarkable. CSF SPACES: Appropriate for age. No hydrocephalus. Basal cisterns are patent. CALVARIUM, SKULL BASE, PARANASAL SINUSES AND MASTOID AIR CELLS: Clear. No discrete lytic or blastic abnormalities. ORBITS: Both globes, extraocular muscles, optic nerves and retrobulbar fat appear unremarkable. ASPECTS Score for Acute Strokes: 10 CT/Brain/Head without Contrast IMPRESSION: No acute intracranial process. Electronically Signed: Lana Soto MD at 17:29 EST ,
--- NOTE | 2024-07-17 16:30 | RAD_ITS ---
INDICATION: Syncope EXAMINATION/TECHNIQUE: X-RAY - XR Chest 1 View COMPARISON: February 15, 2019 FINDINGS: LINES/DEVICES: None. LUNGS: No consolidation, edema or effusion. No pneumothorax. MEDIASTINUM AND CARDIOVASCULAR STRUCTURES: Cardiac silhouette not enlarged. Central airways and mediastinal contour are unremarkable. BONES AND SOFT TISSUES: Unremarkable. RAD/Chest 1 View (Portable) IMPRESSION: No radiographic evidence of acute cardiopulmonary disease. Electronically Signed: Lana Soto MD at 17:29 EST ,
[2024-07-17 16:33] VITALS: RESP 16; O2SAT 93
[2024-07-17 16:53] LABS: BNP,B-Type NATRIURETIC PEPTIDE 9.6 pg/mL (0-100)
[2024-07-17 16:56] LABS: Troponin-I HS (w/2H Reflex) 4 pg/mL (3.0-78.0)
[2024-07-17 18:34] LABS: Reflex Troponin-HS? (from REC) Y
[2024-07-17 19:00] VITALS: BP 138/67; PULSE 81; RESP 18; O2SAT 98
[2024-07-17 19:21] LABS: Troponin-I HS 4 pg/mL (3.0-78.0)
[2024-07-17 19:44] LABS: Bedside Glucose 117 mg/dL (74-106)
[2024-07-17 20:41] VITALS: BP 145/88; PULSE 78; RESP 16; TEMP 37.2; O2SAT 95
== END 2024-07-17 21:27 | disposition home or self-care (01) ==
PROVIDERS: Emergency Provider Emergency Medicine; PCP Family Medicine; Visit Provider Emergency Medicine
DX: R55 Syncope and collapse (principal); E11.9 Type 2 diabetes mellitus without complications; S09.90XA Unspecified injury of head, initial encounter; G47.33 Obstructive sleep apnea (adult) (pediatric); Z87.891 Personal history of nicotine dependence; W19.XXXA Unspecified fall, initial encounter
CPT/HCPCS: 70450; 71045; 80048; 82962; 83880; 84484; 85025; 93005; 99285

== ENCOUNTER → 2024-07-17 | Outpatient (CLI) | payer OTHER, SELFPAY | END | disposition home or self-care (01) | PROVIDERS: PCP Family Medicine; Visit Provider Emergency Medicine | DX: R55 Syncope and collapse (principal) | CPT/HCPCS: 93225; 93226 ==

== ENCOUNTER → 2025-02-13 | Outpatient (CLI) | payer OTHER, SELFPAY ==
--- NOTE | 2025-02-13 13:08 | CT_ITS ---
PROCEDURE: LIMITED CHEST CT CARDIAC ONLY 02/13/2025 REASON FOR EXAM: CHEST PAIN TECHNIQUE: LIMITED CHEST CT CARDIAC ONLY Coronal and Sagittal reconstruction series were provided. CONTRAST: Isovue 370 VOLUME: 100 mL One or more dose reduction techniques were used (e.g., Automated exposure control, adjustment of the mA and/or kV according to patient size, use of iterative reconstruction technique). RADIATION DOSE SUMMARY: CTDlvol: 62.15 mGy DLP: 2872.24 mGycm COMPARISON: None FINDINGS: Coronary artery calcification. The heart is nonenlarged. The aortic arch is unremarkable. The visualized portions of the lung are unremarkable. CT/Limited Chest CT Cardiac Only IMPRESSION: Coronary artery calcification. Reading Location: [id number]
[2025-02-13 13:29] VITALS: BP 154/81; PULSE 69; RESP 16; TEMP 37; O2SAT 97; BMI 47.5
[2025-02-13 13:37] VITALS: PULSE 72
[2025-02-13] MEDS: Nitroglycerin SL (ED/IMG/CATH) 0.4 MG TABLET SL (13:37)
[2025-02-13 13:43] VITALS: BP 146/74; PULSE 75; RESP 16; O2SAT 97
[2025-02-13 13:47] LABS: CREATININE FINGERSTICK < 1.0 mg/dL (0.70-1.30); EGFR FINGERSTICK > 60.0000 mL/min (>60)
== END | disposition home or self-care (01) ==
LOC: CT 13:03
PROVIDERS: PCP Family Medicine; Referring Provider Internal Medicine Cardiovascular Disease; Visit Provider Internal Medicine Cardiovascular Disease
DX: R07.89 Other chest pain (principal)
CPT/HCPCS: 75574; 76380; Q9967